=== PATIENT | female | born 1940 ===

== ENCOUNTER 2017-02-28 21:09 | Observation (INO) | payer MEDICAID ==
[2017-02-28 21:10] VITALS: BMI 27.4
[2017-02-28] MEDS ORDERED: Sodium Chloride 0.9% 500 ML IV STA (22:08)
[2017-02-28 22:15] LABS: BASO # 0.1 K/uL (0.0-0.2); BASO % 0.6 % (0.0-2.0); EOS % 0.2 % (0.0-4.0); HEMOGLOBIN 13.3 g/dL (11.0-16.0); LYMPH % 20.3 % (20.0-40.0); MEAN CELL VOLUME 78.8 fL (81.0-99.0); MEAN CORPUSCULAR HEMOGLOBIN 26.3 pg (27.0-31.0); MEAN CORPUSCULAR HGB CONC 33.3 g/dL (33.0-37.0); MEAN PLATELET VOLUME 9.6 fL (7.2-11.7); MONO # 0.5 K/uL (0.0-0.8); MONO % 5.4 % (0.0-10.0); NEUT # 7.4 K/uL (1.8-7.0); NEUT % 73.5 % (50.0-75.0); NRBC % 0.1 % (0.0-2.0); RBC 5.05 Mil/uL (3.80-5.20); RED CELL DISTRIBUTION WIDTH 14.2 % (11.5-14.5); WHITE BLOOD COUNT 10.1 K/uL (4.8-10.8)
[2017-02-28 22:26] LABS: INR 1.1; PROTHROMBIN TIME 12.6 SECONDS (9.7-12.2)
[2017-02-28] MEDS ORDERED: Sodium Chloride 0.9% 1,000 ML ONE (22:27)
--- NOTE | 2017-02-28 22:30 | CT ---
EXAM: CT Head Without Intravenous Contrast EXAM DATE/TIME: 02/28/2017 10:04 PM CLINICAL HISTORY: 76 years old, female; Signs and symptoms; Weakness, extremity; Bilateral; Additional info: Code stroke TECHNIQUE: Axial computed tomography images of the head/brain without intravenous contrast. All CT scans at this facility use one or more dose reduction techniques, viz.: automated exposure control; ma/kV adjustment per patient size (including targeted exams where dose is matched to indication; i.e. head); or iterative reconstruction technique. COMPARISON: There are no prior studies for comparison. FINDINGS: Brain: There is dilatation of sulci gyri and ventricles. There is no midline shift. There is patchy decreased attenuation in periventricular white matter. There are no focal masses. There are no focal hemorrhages. Hopper-white differentiation is visualized. Ventricles: See above. Bones: Cranial vault is intact. Soft tissues: unremarkable Sinuses: There is air fluid level in the right maxillary sinus. There is partial opacification of ethmoid air cells. Ears and mastoids: Middle ears and mastoids are unremarkable. Orbits: Orbital contents are unremarkable. IMPRESSION: Atrophy and small vessel disease, no bleed; sinus disease
[2017-02-28 22:31] LABS: ALB/GLOB RATIO 1.1 (1.0-2.1); ALBUMIN 3.9 g/dL (3.5-5.0); ALT/SGPT 33 U/L (9-52); AST/SGOT 28 U/L (14-36); BLOOD UREA NITROGEN 13 mg/dL (7-17); CALCIUM 8.8 mg/dl (8.6-10.4); GFR AFRICAN-AMERICAN > 60; GFR NON-AFRICAN AMERICAN > 60; HDL CHOLESTEROL 29 mg/dL (30-70)
[2017-02-28 22:42] LABS: LDL CHOLESTEROL 113 mg/dL (0-129)
[2017-02-28 22:43] LABS: B-TYPE NATRIURETIC PEPTIDE 83.7 pg/mL (0-900)
[2017-02-28] MEDS ORDERED: (Novolin R) Insulin Human Regular 100 units/ml vial IV STA (22:49)
--- NOTE | 2017-02-28 22:57 | C.PDOC ---
History Of Present Illness 76 year old female brought in by family presents to ED for weakness and confusion and has a past medical history of diabetes mellitus (takes unknown regimen). 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 Notes patient was too weak to get up and did not remember how she fell. Confirms that she picked up the patient, fed her, and brought her in afterwards. Patient denies pain or injury, but complains of urinary frequency and foul-smelling urine. Denies recent illness. Daughter states patient called her this morning with complaints of diarrhea. PCP: Malina Phillips Time Seen by Provider: 02/28/17 22:02 Chief Complaint (Nursing): Weakness/Neurological Deficit History Per: Patient History/Exam Limitations: None Onset Of Symptoms: Cannot Confirm Onset Usual Baseline: Alert Oriented Past Medical History Reviewed: Historical Data, Nursing Documentation, Vital Signs Vital Signs: Last Vital Signs Temp 101.3 F H 02/28/17 22:28 Pulse 122 H 02/28/17 21:48 Resp 20 02/28/17 21:48 BP 139/83 02/28/17 21:48 Pulse Ox 94 L 02/28/17 23:11 - Medical History PMH: Diabetes (unknown regimen of medication), HTN, Hypercholesterolemia Surgical History: Cholecystectomy - [facility] Procedures BREAST DX PROCEDURE NEC (04/19/13) EXCISE AXILLARY NODE (04/19/13) PERCUTAN NEEDLE BIOPSY OF BREAST (04/03/13) SUBTOTAL MASTECTOMY (04/19/13) UNILAT SIMPLE MASTECTOMY (06/26/13) X-RAY NEC AND NOS (04/19/13) Family History: States: Unknown Family Hx - Social History Hx Alcohol Use: No Hx Substance Use: No Review Of Systems Except As Marked, All Systems Reviewed And Found Negative. Gastrointestinal: Positive for: Diarrhea Genitourinary: Positive for: Frequency, Other ((+) foul smelling urine) Musculoskeletal: Negative for: Neck Pain, Shoulder Pain, Arm Pain, Back Pain, Hand Pain, Leg Pain, Foot Pain Neurological: Positive for: Weakness, Confusion Physical Exam - Physical Exam Appears: Confused (initially mildly confused. Within a half hour, patient was baseline as per family) Skin: Normal Color, Warm, Dry Head: Atraumatic Eye(s): bilateral: Normal Inspection, PERRL, EOMI Cardiovascular: Rhythm Regular Respiratory: Normal Breath Sounds Gastrointestinal/Abdominal: Normal Exam, No Tenderness Extremity: Normal ROM, No Deformity Neurological/Psych: Oriented x3, Normal Speech, Normal Cognition, Normal Cranial Nerves, Normal Motor, Normal Sensation ED Course And Treatment - Laboratory Results Result Diagrams: 02/28/17 22:11 02/28/17 22:11 Lab Interpretation: Normal (ua neg.) ECG: Interpreted By Me ECG Rhythm: Sinus Tachycardia ECG Interpretation: Abnormal Rate From EC O2 Sat by Pulse Oximetry: 94 Pulse Ox Interpretation: Normal - Radiology CXR: Interpreted by Me CXR Interpretation: Yes: No Acute Disease - CT Scan/US Head CT Other Rad Studies (CT/US): Radiology Report Reviewed (no acute findings. Code STroke @ 10:05, d/w Neuro Consult Dr. Barber @ 2214, Neg head CT result per [facility] @ 2238) Reevaluation Time: 23:54 Reassessment Condition: Improved (back to baseline) - Physician Consult Information Outcome Of Conversation: 2330: d/w Dr. Redding- Hospitalist Forensic Manager- covereing pts for Dr. Phillips. OK to admit. 2330: d/w Medicine Fernandez, will eval. Medical Decision Making Medical Decision Makin Initial impression: febrile, consider UTI Initial plan: * CT HEAD * EKG * BNP * Labs * Hemoglobin * Lipid panel * Trop I * PTT/PT * CXR * Novolin R 4 unit IV * NS IV * Acetaminophen 650mg NV * UA * Re-eval 2204 Code stroke called [address] Barber (neurology consult). Scribe Attestation: Documented by Trisha Burgess acting as a scribe for Sam Avila MD. Scribe Attestation: All medical record entries made by the Scribe were at my direction and personally dictated by me. I have reviewed the chart and agree that the record accurately reflects my personal performance of the history, physical exam, medical decision making, and the department course for this patient. I have also personally directed, reviewed, and agree with the discharge instructions and disposition. mild diarrhea, prob non-infectuous, probably viral and ? vasovagal syncope vs fall no injuries, normal head CT Disposition Doctor Will See Patient In The: Hospital Counseled Patient/Family Regarding: Studies Performed, Diagnosis - Disposition Disposition: HOSPITALIZED Disposition Time: 23:55 Condition: GOOD Forms: [employer] (Ugandan) - POA Core Measure Indicators: Code Stroke - Clinical Impression Clinical Impression: Fall, Diarrhea
[2017-02-28] MEDS ORDERED: (Novolin R) Insulin Human Regular 100 units/ml vial ONE (22:58)
--- NOTE | 2017-02-28 23:08 | C.PDOC ---
Time Seen by Provider: 02/28/17 22:02 Chief Complaint (Nursing): Weakness/Neurological Deficit Past Medical History Vital Signs: Last Vital Signs Temp 97.8 F 03/01/17 15:00 Pulse 85 03/01/17 15:00 Resp 20 03/01/17 15:00 BP 132/79 03/01/17 15:00 Pulse Ox 98 03/01/17 15:00 - Medical History PMH: HTN, Hypercholesterolemia Surgical History: Cholecystectomy - [facility] Procedures BREAST DX PROCEDURE NEC (04/19/13) EXCISE AXILLARY NODE (04/19/13) PERCUTAN NEEDLE BIOPSY OF BREAST (04/03/13) SUBTOTAL MASTECTOMY (04/19/13) UNILAT SIMPLE MASTECTOMY (06/26/13) X-RAY NEC AND NOS (04/19/13) Family History: States: Unknown Family Hx - Social History Hx Alcohol Use: No Hx Substance Use: No ED Course And Treatment - Laboratory Results Result Diagrams: 03/01/17 07:21 03/01/17 07:21 O2 Sat by Pulse Oximetry: 94 Disposition - Disposition Disposition: HOSPITALIZED Condition: GOOD - Clinical Impression Clinical Impression: Fall, Diarrhea
[2017-02-28] MEDS ORDERED: cefTRIAXone IV 1 gm in Dextros 50 ML IV STA (23:09)
[2017-02-28 23:22] LABS: URINE BACTERIA RARE (<OCC); URINE BILIRUBIN NEGATIVE (NEGATIVE); URINE BLOOD NEGATIVE (NEGATIVE); URINE CLARITY Clear (Clear); URINE COLOR Straw (YELLOW); URINE GLUCOSE (UA) 3+ mg/dL (Normal); URINE LEUKOCYTE ESTERASE NEG Leu/uL (Negative); URINE NITRATE NEGATIVE (NEGATIVE); URINE PROTEIN NEGATIVE (NEGATIVE); URINE UROBILINOGEN NORMAL mg/dL (0.2-1.0)
--- NOTE | 2017-02-28 23:29 | CP.PCM.HP ---
<Neel Redding P - Last Filed: 03/01/17 08:17> Meds Allergies/Adverse Reactions: Allergies Allergy/AdvReac Type Severity Reaction Status Date / Time No Known Allergies Allergy Verified 01/19/16 12:54 Results - Vital Signs Recent Vital Signs: Last Vital Signs Temp 98.2 F 03/01/17 07:00 Pulse 84 03/01/17 07:00 Resp 20 03/01/17 07:00 BP 112/68 03/01/17 07:00 Pulse Ox 98 03/01/17 07:00 - Labs Result Diagrams: 03/01/17 07:21 03/01/17 07:21 Labs: Laboratory Results - last 24 hr 02/28/17 02/28/17 02/28/17 22:11 22:11 22:11 WBC 10.1 RBC 5.05 Hgb 13.3 Hct 39.8 MCV 78.8 L D MCH 26.3 L MCHC 33.3 RDW 14.2 Plt Count 234 MPV 9.6 Neut % (Auto) 73.5 Lymph % (Auto) 20.3 [place] % (Auto) 5.4 Eos % (Auto) 0.2 Baso % (Auto) 0.6 Neut # 7.4 H Lymph # 2.0 [place] # 0.5 Eos # 0.0 Baso # 0.1 PT INR APTT Sodium 128 L Potassium 3.8 Chloride 93 L Carbon Dioxide 23 Anion Gap 16 BUN 13 Creatinine 0.7 Est GFR ( Amer) > 60 Est GFR (Non-Af Amer) > 60 POC Glucose (mg/dL) Random Glucose 301 H Hemoglobin A1c 9.8 H Calcium 8.8 Phosphorus Magnesium Total Bilirubin 0.8 AST 28 ALT 33 Alkaline Phosphatase 87 Troponin I < 0.0120 NT-Pro-B Natriuret Pep 83.7 Total Protein 7.3 Albumin 3.9 Globulin 3.4 Albumin/Globulin Ratio 1.1 Triglycerides 142 D Cholesterol 154 LDL Cholesterol Direct 113 HDL Cholesterol 29 L Urine Color Urine Clarity Urine pH Ur Specific [place] Urine Protein Urine Glucose (UA) Urine Ketones Urine Blood Urine Nitrate Urine Bilirubin Urine Urobilinogen Ur Leukocyte Esterase Urine RBC (Auto) Urine Bacteria Influenza Typ A,B (EIA) 02/28/17 02/28/17 02/28/17 22:14 23:17 23:32 WBC RBC Hgb Hct MCV MCH MCHC RDW Plt Count MPV Neut % (Auto) Lymph % (Auto) [place] % (Auto) Eos % (Auto) Baso % (Auto) Neut # Lymph # [place] # Eos # Baso # PT 12.6 H INR 1.1 APTT 29 Sodium Potassium Chloride Carbon Dioxide Anion Gap BUN Creatinine Est GFR ( Amer) Est GFR (Non-Af Amer) POC Glucose (mg/dL) Random Glucose Hemoglobin A1c Calcium Phosphorus Magnesium Total Bilirubin AST ALT Alkaline Phosphatase Troponin I NT-Pro-B Natriuret Pep Total Protein Albumin Globulin Albumin/Globulin Ratio Triglycerides Cholesterol LDL Cholesterol Direct HDL Cholesterol Urine Color Straw Urine Clarity Clear Urine pH 5.0 Ur Specific [place] 1.012 Urine Protein Negative Urine Glucose (UA) 3+ H Urine Ketones 1+ H Urine Blood Negative Urine Nitrate Negative Urine Bilirubin Negative Urine Urobilinogen Normal Ur Leukocyte Esterase Neg Urine RBC (Auto) < 1 Urine Bacteria Rare Influenza Typ A,B (EIA) Negative for flu a/b 03/01/17 03/01/17 03/01/17 06:30 07:21 07:21 WBC 6.7 RBC 4.33 Hgb 11.5 Hct 34.8 MCV 80.3 L MCH 26.6 L MCHC 33.1 RDW 14.5 Plt Count 180 MPV 9.9 Neut % (Auto) 60.3 Lymph % (Auto) 29.2 [place] % (Auto) 9.0 Eos % (Auto) 1.3 Baso % (Auto) 0.2 Neut # 4.0 Lymph # 1.9 [place] # 0.6 Eos # 0.1 Baso # 0.0 PT INR APTT Sodium 132 Potassium 3.3 L Chloride 102 Carbon Dioxide 25 Anion Gap 9 L BUN 9 Creatinine 0.6 L Est GFR ( Amer) > 60 Est GFR (Non-Af Amer) > 60 POC Glucose (mg/dL) 187 H Random Glucose 172 H Hemoglobin A1c Calcium 8.0 L Phosphorus 3.5 Magnesium 1.4 L Total Bilirubin 0.4 AST 23 ALT 30 Alkaline Phosphatase 68 Troponin I NT-Pro-B Natriuret Pep Total Protein 5.6 L Albumin 2.9 L D Globulin 2.8 Albumin/Globulin Ratio 1.0 Triglycerides Cholesterol LDL Cholesterol Direct HDL Cholesterol Urine Color Urine Clarity Urine pH Ur Specific [place] Urine Protein Urine Glucose (UA) Urine Ketones Urine Blood Urine Nitrate Urine Bilirubin Urine Urobilinogen Ur Leukocyte Esterase Urine RBC (Auto) Urine Bacteria Influenza Typ A,B (EIA) Attending/Attestation - Attestation I have personally seen and examined this patient.: Yes I have fully participated in the care of the patient.: Yes I have reviewed all pertinent clinical information: Yes Notes (Text): Assessment * Fever * Syncope, no injuries, no neurologic symptoms, stool w/u as patient had few episode loose bm * IDDM * tobacco chewing Plan * Observe for fever, no clear source * Procacitonin, bc pending * hold on hctz, metformin while in hospital * Echo * Gi/dvt prophylaxis * stool w/u * See orders for detail. 03/01/17 08:17 <Nathalie Nevarez - Last Filed: 03/01/17 09:23> History of Present Illness - History of Present Illness History of Present Illness: Medicine Note for Hospitalist Service CC: Syncope HPI:[id number] Female with PMHx of HTN, DM, Breast Cancer- DCIS s/p left mastectomy presents to the ED after a syncopal episode. History retrieved from the patient, family friend, and daughter. Patient had a normal breakfast and lunch. After lunch the homemaker left around 1 pm. She reported have 2-4 bowel movements of diarrhea, nonbloody, non-bilious. The patient's daughter called her around 3pm and there was no response. When the daughter arrived home at 5: 30 she found the patient on the floor, covered in her own urine. Patient reports she was walking and her next memory of the event was her being on the floor. She reports she felt dizzy at that movement and just passed out and landed on the floor. She is unaware of how long she was down. She could not recall if there any trauma to her head, or other body parts. Due to the length of time she was on the floor, she urinated on herself, due to the inability to hold her urine. Her daughter checked her sugar when she found her at 5:30 pm - it read 129. This is the first time this has happened to her. Denied fever, chills, headache, cough, chest pain, SOB, abdominal pain, n/v/d/c, or urinary symptoms. PMHx: HTN, DM, Breast Cancer- DCIS s/p left mastectomy PSHx: Vaginal sling for vaginal prolapse, hysterectomy, mastectomy Meds: As per APR, reviewed and confirmed All: NKDA SHx: Admits to chewing tobacco, denied ETOH or illicit drug use FHx: Unremarkable PMD: Phillips Present on Admission - Present on Admission Any Indicators Present on Admission: No Past Patient History - Infectious Disease Hx of Infectious Diseases: None - Past Medical History & Family History Past Medical History?: Yes - Past Social History Smoking Status: Never Smoked - CARDIAC Hx Hypercholesterolemia: Yes Hx Hypertension: Yes - HEENT Hx HEENT Problems: Yes Hx Cataracts: Yes Hx Glaucoma: Yes - ENDOCRINE/METABOLIC Hx Endocrine Disorders: Yes Hx Diabetes Mellitus Type 2: Yes - HEMATOLOGICAL/ONCOLOGICAL Hx Blood Disorders: Yes Hx Cancer: Yes - MUSCULOSKELETAL/RHEUMATOLOGICAL Hx Falls: No - GENITOURINARY/GYNECOLOGICAL Hx Genitourinary Disorders: Yes Hx Reproductive Disorders: Yes (HOT "FLASHES") - PSYCHIATRIC Hx Substance Use: No - SURGICAL HISTORY Hx Cholecystectomy: Yes - ANESTHESIA Hx Anesthesia: Yes Hx Anesthesia Reactions: No Hx Malignant Hyperthermia: No Results - Vital Signs Recent Vital Signs: Last Vital Signs Temp 101.3 F H 02/28/17 22:28 Pulse 122 H 02/28/17 21:48 Resp 20 02/28/17 21:48 BP 139/83 02/28/17 21:48 Pulse Ox 94 L 02/28/17 23:11 - Labs Result Diagrams: 03/01/17 07:21 03/01/17 07:21 Labs: Laboratory Results - last 24 hr 02/28/17 02/28/17 02/28/17 22:11 22:11 22:11 WBC 10.1 RBC 5.05 Hgb 13.3 Hct 39.8 MCV 78.8 L D MCH 26.3 L MCHC 33.3 RDW 14.2 Plt Count 234 MPV 9.6 Neut % (Auto) 73.5 Lymph % (Auto) 20.3 [place] % (Auto) 5.4 Eos % (Auto) 0.2 Baso % (Auto) 0.6 Neut # 7.4 H Lymph # 2.0 [place] # 0.5 Eos # 0.0 Baso # 0.1 PT INR APTT Sodium 128 L Potassium 3.8 Chloride 93 L Carbon Dioxide 23 Anion Gap 16 BUN 13 Creatinine 0.7 Est GFR ( Amer) > 60 Est GFR (Non-Af Amer) > 60 Random Glucose 301 H Hemoglobin A1c 9.8 H Calcium 8.8 Total Bilirubin 0.8 AST 28 ALT 33 Alkaline Phosphatase 87 Troponin I < 0.0120 NT-Pro-B Natriuret Pep 83.7 Total Protein 7.3 Albumin 3.9 Globulin 3.4 Albumin/Globulin Ratio 1.1 Triglycerides 142 D Cholesterol 154 LDL Cholesterol Direct 113 HDL Cholesterol 29 L Urine Color Urine Clarity Urine pH Ur Specific [place] Urine Protein Urine Glucose (UA) Urine Ketones Urine Blood Urine Nitrate Urine Bilirubin Urine Urobilinogen Ur Leukocyte Esterase Urine RBC (Auto) Urine Bacteria 02/28/17 02/28/17 22:14 23:17 WBC RBC Hgb Hct MCV MCH MCHC RDW Plt Count MPV Neut % (Auto) Lymph % (Auto) [place] % (Auto) Eos % (Auto) Baso % (Auto) Neut # Lymph # [place] # Eos # Baso # PT 12.6 H INR 1.1 APTT 29 Sodium Potassium Chloride Carbon Dioxide Anion Gap BUN Creatinine Est GFR ( Amer) Est GFR (Non-Af Amer) Random Glucose Hemoglobin A1c Calcium Total Bilirubin AST ALT Alkaline Phosphatase Troponin I NT-Pro-B Natriuret Pep Total Protein Albumin Globulin Albumin/Globulin Ratio Triglycerides Cholesterol LDL Cholesterol Direct HDL Cholesterol Urine Color Straw Urine Clarity Clear Urine pH 5.0 Ur Specific [place] 1.012 Urine Protein Negative Urine Glucose (UA) 3+ H Urine Ketones 1+ H Urine Blood Negative Urine Nitrate Negative Urine Bilirubin Negative Urine Urobilinogen Normal Ur Leukocyte Esterase Neg Urine RBC (Auto) < 1 Urine Bacteria Rare Assessment & Plan - Assessment and Plan (Free Text) Assessment: 76 Female with PMHx of HTN, DM, Breast Cancer- DCIS s/p left mastectomy presents to the ED after a syncopal episode. Plan: Syncope Head CT: Atrophy and small vessel disease, no bleed; sinus disease CXR: No focal infiltrate or effusion F/U ECHO, Carotid Dopplers, TSH, T4, B12, folate, Vit D Diarrhea Febrile on admission Negative Flu F/U stool studies, CDiff, blood culture NS @ 100cc/hr Hx DM Accuchecks Resumed home medications: Lantus 18units SC daily, Januvia 100mg Po daily ( held Amaryl) HGA1C: 9.8 Hx HTN Resumed Lisinopril 10mg PO daily (held HCTZ due to Hyponatremia) Hx HLD Crestor 5mg PO QHS Hx Breast Ca - DCIS s/p Left Mastectomy Prophylactic Measures GI PPX: 40mg PO daily DVT PPX: SCDs, Hep Q12 PT Aubrieal SEA Redding, Nathalie Nevarez DO, PGY-1
[2017-02-28] MEDS ORDERED: Sodium Chloride 0.9% 1,000 ML IV SCH (23:45)
[2017-03-01 07:39] LABS: BASO % 0.2 % (0.0-2.0); EOS # 0.1 K/uL (0.0-0.7); EOS % 1.3 % (0.0-4.0); HEMOGLOBIN 11.5 g/dL (11.0-16.0); LYMPH # 1.9 K/uL (1.0-4.3); LYMPH % 29.2 % (20.0-40.0); MEAN CELL VOLUME 80.3 fL (81.0-99.0); MEAN CORPUSCULAR HEMOGLOBIN 26.6 pg (27.0-31.0); MEAN CORPUSCULAR HGB CONC 33.1 g/dL (33.0-37.0); MEAN PLATELET VOLUME 9.9 fL (7.2-11.7); MONO # 0.6 K/uL (0.0-0.8); NEUT % 60.3 % (50.0-75.0); RBC 4.33 Mil/uL (3.80-5.20); RED CELL DISTRIBUTION WIDTH 14.5 % (11.5-14.5); WHITE BLOOD COUNT 6.7 K/uL (4.8-10.8)
[2017-03-01 07:59] LABS: ALBUMIN 2.9 g/dL (3.5-5.0); ALT/SGPT 30 U/L (9-52); AST/SGOT 23 U/L (14-36); BLOOD UREA NITROGEN 9 mg/dL (7-17); GFR AFRICAN-AMERICAN > 60; GFR NON-AFRICAN AMERICAN > 60; MAGNESIUM 1.4 mg/dL (1.6-2.3)
--- NOTE | 2017-03-01 08:39 | RAD ---
Chest x-ray single frontal view History: MS. Admission film. Comparison: 04/13/2013 Findings: No focal infiltrate or effusion. Heart size within normal limits. Calcification at aortic knob. Impression: No focal infiltrate or effusion.
[2017-03-01] MEDS: (Novolin R) Insulin Human Regular 100 units/ml vial SC SCH ×3 (08:45→17:55)
[2017-03-01] MEDS: Insulin Detemir 100 units/ml Vial (Levemir) SC SCH (09:26)
[2017-03-01] MEDS: Pantoprazole 40 mg EC Tab PO SCH (09:26)
[2017-03-01] MEDS: Magnesium Sulfate 1 gm in D5W 1 GM/100 ML BAG IVPB SCH ×2 (09:27→10:41)
[2017-03-01] MEDS ORDERED: PRAVASTATIN SODIUM PO SCH (10:00)
[2017-03-01] MEDS ORDERED: Potassium Chloride 20 mEq ER Tab PO ONE (10:00)
[2017-03-01 12:57] LABS: FOLATE 11.3 ng/mL
--- NOTE | 2017-03-01 13:38 | VASCLAB ---
PROCEDURE: HISTORY: syncope COMPARISON: None available. TECHNIQUE: Grayscale and duplex Doppler evaluation of the cervical carotid and vertebral arteries were performed. The common carotid, carotid bifurcations and cervical Internal Carotid Artery (ICA) and proximal External Carotid Artery (ECA) were evaluated. The vertebral arteries were evaluated for gross patency and flow direction. Report prepared by Bib Flores, BS, RVT FINDINGS: RIGHT CAROTID ARTERIES: 1. Common Carotid Artery: No significant focal plaque formation of the right common carotid artery. Maximum Peak Systolic velocity: 99 cm/sec: End-diastolic velocity 15 cm/sec. 2. Carotid Bifurcation: plaque formation. Maximum Peak Systolic velocity: 86 cm/sec: End-diastolic velocity 18 cm/sec. 3. Internal Carotid Artery: Plaque description: 3.1. Proximal Segment: Peak systolic velocity 69 cm/sec: End-diastolic velocity 18 cm/sec - % stenosis 0-15% 3.2. Middle Segment: Peak systolic velocity 81 cm/sec: End-diastolic velocity 21 cm/sec - % stenosis 0-15% 3.3. Distal Segment: Peak systolic velocity 69 cm/sec: End-diastolic velocity 21 cm/sec - % stenosis 0-15% 4. External Carotid Artery: No significant focal plaque formation. Peak systolic velocity 82 cm/sec 5. ICA/CCA Ratio: 0.9 LEFT CAROTID ARTERIES: 1. Common Carotid Artery: No significant focal plaque formation of the left common carotid artery. Maximum Peak Systolic velocity: 79 cm/sec: End-diastolic velocity 19 cm/sec. 2. Carotid Bifurcation: plaque formation. Maximum Peak Systolic velocity: 61 cm/sec: End-diastolic velocity 15 cm/sec. 3. Internal Carotid Artery: Plaque description: 3.1. Proximal Segment: Peak systolic velocity 70 cm/sec: End-diastolic velocity 24 cm/sec - % stenosis 0-15% 3.2. Middle Segment: Peak systolic velocity 101 cm/sec: End-diastolic velocity 37 cm/sec - % stenosis 0-15% 3.3. Distal Segment: Peak systolic velocity 85 cm/sec: End-diastolic velocity 85 cm/sec - % stenosis 0-15% 4. External Carotid Artery: No significant focal plaque formation. Peak systolic velocity 82 cm/sec 5. ICA/CCA Ratio: 1.3 VERTEBRAL ARTERIES: 1. Right Vertebral Artery: The right vertebral artery flow direction is antegrade. 2. Left Vertebral Artery: The left vertebral artery flow direction is antegrade. OTHER FINDINGS: 1. Right Brachial Blood pressure: 126 mmHg. 2. Left Brachial Blood pressure: 120 mmHg. IMPRESSION: RIGHT: Duplex scan does not suggest hemodynamically significant stenosis of the right extracranial carotid arteries. LEFT: Duplex scan does not suggest hemodynamically significant stenosis of the left extracranial carotid arteries.
[2017-03-01] MEDS ORDERED: Influenza Vaccine 60 mcg/0.5 mL SYR (4YR UP) IM ONE (14:00)
[2017-03-01] MEDS ORDERED: Pneumococcal 23-Valent Vaccine IM ONE (14:00)
--- NOTE | 2017-03-01 14:06 | CP.PCM.PN ---
<AguilarRenaten - Last Filed: 03/01/17 20:07> Subjective - Date & Time of Evaluation Date of Evaluation: 03/01/17 Time of Evaluation: 10:04 - Subjective Subjective: Patient seen and examined at bedside. Per nursing no acute events occurred overnight. The patient reports feeling fine today. The patient is tolerating her diet with no complaints. The patient denies any chest pain, shortness of breath, lightheadedness, dizzines, syncopal episodes, changes in vision, fevers , chills, nausea, vomiting, or any other complaints. Objective - Vital Signs/Intake and Output Vital Signs (last 24 hours): Temp Pulse Resp BP Pulse Ox 98.2 F 84 20 112/68 98 03/01/17 07:00 03/01/17 07:00 03/01/17 07:00 03/01/17 07:00 03/01/17 08:00 - Medications Medications: Current Medications Aspirin (Ecotrin) 81 mg PO DAILY [facility] Last Admin: 03/01/17 09:25 Dose: 81 mg Heparin Sodium (Porcine) (Heparin) 5,000 units SC Q12 [facility] Last Admin: 03/01/17 09:26 Dose: 5,000 units Sodium Chloride (Sodium Chloride 0.9%) 1,000 mls @ 100 mls/hr IV .Q10H [facility] Last Admin: 03/01/17 00:00 Dose: 100 mls/hr Insulin Detemir (Levemir) 18 unit SC QAM [facility] Last Admin: 03/01/17 09:26 Dose: 18 unit Insulin Human Regular (Novolin R) 0 unit SC ACHS [facility] PRN Reason: Protocol Last Admin: 03/01/17 12:44 Dose: 4 unit Lisinopril (Zestril) 10 mg PO DAILY [facility] Last Admin: 03/01/17 09:26 Dose: 10 mg Pantoprazole Sodium (Protonix Ec Tab) 40 mg PO DAILY [facility] Last Admin: 03/01/17 09:26 Dose: 40 mg Rosuvastatin Calcium (Crestor) 5 mg PO HS [facility] Sitagliptin Phosphate (Januvia) 100 mg PO DAILY [facility] Last Admin: 03/01/17 09:26 Dose: 100 mg - Labs Labs: 03/01/17 07:21 03/01/17 07:21 PT 12.6 SECONDS (9.7-12.2) H 02/28/17 22:14 INR 1.1 02/28/17 22:14 APTT 29 SECONDS (21-34) 02/28/17 22:14 - Head Exam Head Exam: ATRAUMATIC, NORMAL INSPECTION, NORMOCEPHALIC - Eye Exam Eye Exam: EOMI, Normal appearance, PERRL. absent: Periorbital tenderness Pupil Exam: NORMAL ACCOMODATION, PERRL. absent: Irregular, Unequal - ENT Exam ENT Exam: Mucous Membranes Moist, Normal Exam, Normal Oropharynx - Neck Exam Neck Exam: Normal Inspection. absent: Lymphadenopathy, Thyromegaly - Respiratory Exam Respiratory Exam: Clear to Ausculation Bilateral, NORMAL BREATHING PATTERN. absent: Chest Wall Tenderness, Prolonged Expiratory Phase, Respiratory Distress - Cardiovascular Exam Cardiovascular Exam: REGULAR RHYTHM, RRR, +S1, +S2. absent: Gallop, Rubs - GI/Abdominal Exam GI & Abdominal Exam: Soft, Normal Bowel Sounds. absent: Rigid, Hyperactive Bowel Sounds - Extremities Exam Extremities Exam: Full ROM, Normal Inspection. absent: Joint Swelling, Pedal Edema, Tenderness - Back Exam Back Exam: NORMAL INSPECTION. absent: CVA tenderness (L), CVA tenderness (R), paraspinal tenderness - Neurological Exam Neurological Exam: Alert, Awake, CN II-XII Intact, Normal Gait, Oriented x3 - Psychiatric Exam Psychiatric exam: Normal Affect, Normal Mood - Skin Skin Exam: Dry, Intact, Normal Color, Warm Assessment and Plan - Assessment and Plan (Free Text) Assessment: 76 Female with PMHx of HTN, DM, Breast Cancer- DCIS s/p left mastectomy presents to the ED after a syncopal episode. Plan: Syncope Head CT: Atrophy and small vessel disease, no bleed; sinus disease CXR: No focal infiltrate or effusion TSH: 2.32 T4: .95 Folate:11.2 Vit B12: 221 Caroitd Doppler: Right (negative for stenosis) Left (negative for stenosis) Echo taken. Not officially read. Will f/u with results. Diarrhea Febrile on admission Negative Flu F/U stool studies, CDiff, blood culture , Urine cultures Continue NS @ 100cc/hr Hx DM Accuchecks Resumed home medications: Lantus 18units SC daily, Januvia 100mg Po daily ( held Amaryl) HGA1C: 9.8 Patient states she checks her blood sugar one in the morning before her meal and in the evening before dinner. Discussed with patient the importance of adhering to dosing schedule. Hx HTN Continue Lisinopril 10mg PO daily (held HCTZ due to Hyponatremia) Hx HLD Continue Crestor 5mg PO QHS Hx Breast Ca - DCIS s/p Left Mastectomy No Intervention indicated at this time. Prophylactic Measures GI PPX: 40mg PO daily DVT PPX: SCDs, Hep Q12 PT Eval <Jarrod Salgado - Last Filed: 03/02/17 20:04> Objective - Vital Signs/Intake and Output Vital Signs (last 24 hours): Temp Pulse Resp BP Pulse Ox 98.7 F 79 18 116/71 97 03/02/17 08:36 03/02/17 11:25 03/02/17 08:36 03/02/17 08:36 03/02/17 11:25 Intake and Output: 03/02/17 03/03/17 18:59 06:59 Intake Total 650 Balance 650 - Labs Labs: 03/02/17 07:18 03/02/17 07:18 PT 12.6 SECONDS (9.7-12.2) H 02/28/17 22:14 INR 1.1 02/28/17 22:14 APTT 29 SECONDS (21-34) 02/28/17 22:14 Attending/Attestation - Attestation I have personally seen and examined this patient.: No I have fully participated in the care of the patient.: Yes I have reviewed all pertinent clinical information, including history, physical exam and plan: Yes Notes (Text): 03/02/17 20:03 Please note that this patient was not seen by me on 03/01/17 as patient was not on Hospitalist list. Jarrod Salgado D.O.
--- NOTE | 2017-03-01 22:35 | CARD ---
APPROVED REPORT EXAM: Two-dimensional and M-mode echocardiogram with Doppler and color Doppler. INDICATION Syncope RISK FACTORS Hypertension Diabetes 2D DIMENSIONS IVSd1.3 (0.7-1.1cm)LVDd3.9 (3.9-5.9cm) PWd1.4 (0.7-1.1cm)LVDs2.4 (2.5-4.0cm) FS (%) 38.0 %LVEF (%)68.8 (>50%) M-Mode DIMENSIONS Left Atrium (MM)3.99 (2.5-4.0cm)IVSd1.04 (0.7-1.1cm) Aortic Root3.30 (2.2-3.7cm)LVDd5.26 (4.0-5.6cm) Aortic Cusp Exc.2.01 (1.5-2.0cm)PWd1.68 (0.7-1.1cm) FS (%) 31 %LVDs3.64 (2.0-3.8cm) LVEF (%)58 (>50%) Mitral Valve MV E Phnkwmfl83.4cm/sMV A Nbixaaug607.4cm/sE/A ratio0.8 TDI E/Lateral E'0.0E/Medial E'0.0 LEFT VENTRICLE The left ventricle is normal size. The left ventricular function is normal. The left ventricular ejection fraction is within the normal range. There is normal LV segmental wall motion. Transmitral Doppler flow pattern is abnormal. RIGHT VENTRICLE The right ventricle is normal size. ATRIA The left atrium is borderline dilated. MITRAL VALVE Mitral regurgitation is trace. TRICUSPID VALVE There is mild tricuspid regurgitation. <Conclusion> Normal LV systolic function. Borderline dilated LA. Diastolic dysfunction. Mild TR. Trcae MR.
--- NOTE | 2017-03-01 23:05 | CARD ---
APPROVED REPORT EKG Measurement Heart [id number] <Conclusion> Sinus tachycardia Abnormal ECG
[2017-03-02 07:30] LABS: BASO % 0.4 % (0.0-2.0); EOS # 0.3 K/uL (0.0-0.7); LYMPH # 2.3 K/uL (1.0-4.3); LYMPH % 36.3 % (20.0-40.0); MEAN CELL VOLUME 80.7 fL (81.0-99.0); MEAN CORPUSCULAR HEMOGLOBIN 26.6 pg (27.0-31.0); MEAN CORPUSCULAR HGB CONC 32.9 g/dL (33.0-37.0); MEAN PLATELET VOLUME 9.9 fL (7.2-11.7); MONO # 0.6 K/uL (0.0-0.8); MONO % 10.2 % (0.0-10.0); NEUT # 3.1 K/uL (1.8-7.0); NEUT % 49.1 % (50.0-75.0); RBC 4.12 Mil/uL (3.80-5.20); RED CELL DISTRIBUTION WIDTH 14.5 % (11.5-14.5); WHITE BLOOD COUNT 6.3 K/uL (4.8-10.8)
[2017-03-02 07:48] LABS: ALB/GLOB RATIO 1.1 (1.0-2.1); ALBUMIN 2.8 g/dL (3.5-5.0); ALT/SGPT 35 U/L (9-52); AST/SGOT 24 U/L (14-36); BLOOD UREA NITROGEN 10 mg/dL (7-17); CALCIUM 7.8 mg/dl (8.6-10.4); GFR AFRICAN-AMERICAN > 60; GFR NON-AFRICAN AMERICAN > 60; MAGNESIUM 1.6 mg/dL (1.6-2.3)
[2017-03-02 08:38] VITALS: BP 116/71; RESP 18; TEMP 98.7
[2017-03-02] MEDS: (Novolin R) Insulin Human Regular 100 units/ml vial SC SCH ×2 (08:49→13:02)
--- NOTE | 2017-03-02 09:13 | CP.PCM.PN ---
Subjective - Date & Time of Evaluation Date of Evaluation: 03/02/17 Time of Evaluation: 09:00 - Subjective Subjective: Hospitalist Progress Note 76 year old female (PMHx of DM 2 on Insulin, HTN, HLD, Breast CA S/P Left Mastectomy) who presented to [facility] ER on 02/28/17 after syncopal episode. Patient states that after her in home caregiver left 1 PM on 02/28/17 she had 2 to 4 SOFT (and NOT diarrhea) bowel movements after which she became dizzy (NO CP, NO SOB, NO Palpitations) and passed out. She is not aware of the exact time that she was out. However, Daughter (as per records) indicated that she called patient at 3 PM and no answer and when she came to check in on patient at 5:30, she found patient laying on the floor. Chest X Ray, CT Head, Carotid U/S, Echocardiogram are all unremarkable. Awaiting evaluation for PT Crisitina. Patient states that she does not want to go to [facility] if recommended by PT but will accept Home PT. She has a homemaker who comes Tuesday through Tuesday for 5 hours and her Nephew lives in the same building who looks in on her. Currently upon FULL ROS: NO more episodes of dizziness Bowel Movements are normal and nonbloody/nonblack NO chest pain NO palpitations NO SOB/cough/wheezing NO abdominal pain NO n/v/c NO burning/pain with urination NO headaches NO new changes in vision NO new changes in hearing NO paresthesias Exam: General: AAOX3, NAD HEENT: NCA, EOMI, PERRLA, NO thyromegaly, NO cervical/supraclavicular/ submandibular lymphadenopathy, NO pharyngeal erythema/exudate Cardio: NS1 and NS2, NO M/R/G Resp: CTA B/L , NO R/R/W GI: BSx4, soft, NT, ND, NO HSM, NO guarding/rebound tenderness Ext: NO edema, Pulses are strong and equal, Capillary Refill is 2 seconds Neuro: CN II through XII are grossly intact, 5/5 strength with flexion/ extension against resistance in bilateral UE and LE, 2/4 DTR bilateral UE and LE , Rhomberg and [place] are normal Spoke with PT Kiley and patient would benefit from [facility] but patient has refused but has agreed to Home PT. This has been set up with [facility] and tax representative Kath is made aware and Rx provided to her for Home PT and Home Visiting Nurse for Diabetic counseling considering the elevated HgBA1C. Explained to patient and her niece Jesi that someone from [facility] will be contacting patient in the next 24 to 48 hours. I have gone over all of the home medications as per the Medication Record and confirmed with Patient and her Niece Jesi [phone] that she has enough of all her medications. Considering the above, the patient is stable for discharge Assessment and Plan: 1). Syncope Please see details in HPI Likely secondary to Vasovagal Episode Chest X Ray, CT Head, Carotid U/S, Echocardiogram (borderline dilated LA, diastolic dysfunction, Mild TR and Trace MR) are all unremarkable. 2). Questionable Diarrhea Patient stated that she never had diarrhea, just soft bowel movement initially ( see HPI). 3). DM 2 On Insulin Confirmed with patient (Niece Jesi [phone] was present at the time of going over discharge instructions with patient) that patient has enough of her Lantus, Januvia, Amaryl, Metformin 4). HTN Asked patient to HOLD off on taking Lisinopril/HCTZ component as the HCTZ component is likely causing the Hyponatremia. New Rx for Lisinopril provided to patient 5). HLD She will continue her Pravastatin which was confirmed that she had enough of. 6). Hx Breast CA S/P Left Mastectomy She [place] [facility] [place] 7). Hypokalemia Resolved 8). Hyponatremia Resolved The following instructions were thoroughly gone over with the patient and a copy will be provided to her upon discharge by Nurse: 1). Follow up with your Primary Physician Dr. Phillips in the next 7 days. 2). Follow up as scheduled with your Breast Cancer Physician as planned on 03/03/17 at [facility] 3). You stated that you had enough of your home medications. Please continue them as directed by Dr. Phillips: Januvia Metformin Glimepiride Lantus [place]ine Aspirin 4). Please STOP taking Lisinopril/Hydrochlorothiazide as this is causing your Sodium level to drop. Please take the following new medication and have the prescription filled at your pharmacy: Lisinopril 10 mg, 1 tablet by mouth 1x/day with breakfast, Disp #30, NO refills 5). Please take care and be well. Jarrod Salgado D.O. Objective - Vital Signs/Intake and Output Vital Signs (last 24 hours): Temp Pulse Resp BP Pulse Ox 98.7 F 72 18 116/71 96 03/02/17 08:36 03/02/17 08:36 03/02/17 08:36 03/02/17 08:36 03/02/17 08:36 Intake and Output: 03/02/17 03/02/17 06:59 18:59 Intake Total 800 Balance 800 - Medications Medications: Current Medications Aspirin (Ecotrin) 81 mg PO DAILY [facility] Last Admin: 03/01/17 09:25 Dose: 81 mg Heparin Sodium (Porcine) (Heparin) 5,000 units SC Q12 [facility] Last Admin: 03/01/17 21:24 Dose: 5,000 units Sodium Chloride (Sodium Chloride 0.9%) 1,000 mls @ 100 mls/hr IV .Q10H [facility] Last Admin: 03/01/17 00:00 Dose: 100 mls/hr Insulin Detemir (Levemir) 18 unit SC QAM [facility] Last Admin: 03/01/17 09:26 Dose: 18 unit Insulin Human Regular (Novolin R) 0 unit SC ACHS [facility] PRN Reason: Protocol Last Admin: 03/02/17 08:49 Dose: 1 unit Lisinopril (Zestril) 10 mg PO DAILY [facility] Last Admin: 03/01/17 09:26 Dose: 10 mg Pantoprazole Sodium (Protonix Ec Tab) 40 mg PO DAILY [facility] Last Admin: 03/01/17 09:26 Dose: 40 mg Pneumococcal Polyvalent Vaccine (Pneumovax 23 Vaccine) 0.5 ml IM .ONCE ONE Stop: 03/02/17 14:01 Rosuvastatin Calcium (Crestor) 5 mg PO HS [facility] Last Admin: 03/01/17 21:24 Dose: 5 mg Sitagliptin Phosphate (Januvia) 100 mg PO DAILY [facility] Last Admin: 03/01/17 09:26 Dose: 100 mg - Labs Labs: 03/02/17 07:18 03/02/17 07:18 PT 12.6 SECONDS (9.7-12.2) H 01/22/18 22:14 INR 1.1 02/28/17 22:14 APTT 29 SECONDS (21-34) 02/28/17 22:14
--- NOTE | 2017-03-02 09:46 | CP.PCM.DIS ---
Provider - Provider Date of Admission: 02/28/17 23:45 Attending physician: Neel Redding MD Primary care physician: PMD: Dr. Phillips Time Spent in preparation of Discharge (in minutes): 45 Hospital Course - Lab Results Lab Results: Micro Results 02/28/17 00:15 Blood Blood Culture - Preliminary NO GROWTH AFTER 24 HOURS 02/28/17 23:13 Urine,Catheterized Urine Culture - Final No Growth (<1,000 CFU/ML) Most Recent Lab Values WBC 6.3 K/uL (4.8-10.8) 03/02/17 07:18 RBC 4.12 Mil/uL (3.80-5.20) 03/02/17 07:18 Hgb 11.0 g/dL (11.0-16.0) 03/02/17 07:18 Hct 33.3 % (34.0-47.0) L 03/02/17 07:18 MCV 80.7 fL (81.0-99.0) L 03/02/17 07:18 MCH 26.6 pg (27.0-31.0) L 03/02/17 07:18 MCHC 32.9 g/dL (33.0-37.0) L 03/02/17 07:18 RDW 14.5 % (11.5-14.5) 03/02/17 07:18 Plt Count 171 K/uL (130-400) 03/02/17 07:18 MPV 9.9 fL (7.2-11.7) 03/02/17 07:18 Neut % (Auto) 49.1 % (50.0-75.0) L 03/02/17 07:18 Lymph % (Auto) 36.3 % (20.0-40.0) 03/02/17 07:18 [place] % (Auto) 10.2 % (0.0-10.0) H 03/02/17 07:18 Eos % (Auto) 4.0 % (0.0-4.0) 03/02/17 07:18 Baso % (Auto) 0.4 % (0.0-2.0) 03/02/17 07:18 Neut # 3.1 K/uL (1.8-7.0) 03/02/17 07:18 Lymph # 2.3 K/uL (1.0-4.3) 03/02/17 07:18 [place] # 0.6 K/uL (0.0-0.8) 03/02/17 07:18 Eos # 0.3 K/uL (0.0-0.7) 03/02/17 07:18 Baso # 0.0 K/uL (0.0-0.2) 03/02/17 07:18 PT 12.6 SECONDS (9.7-12.2) H 02/28/17 22:14 INR 1.1 02/28/17 22:14 APTT 29 SECONDS (21-34) 02/28/17 22:14 Sodium 133 mmol/L (132-148) 03/02/17 07:18 Potassium 3.8 mmol/L (3.6-5.2) 03/02/17 07:18 Chloride 105 mmol/L (98-107) 03/02/17 07:18 Carbon Dioxide 24 mmol/L (22-30) 03/02/17 07:18 Anion Gap 8 (10-20) L 03/02/17 07:18 BUN 10 mg/dL (7-17) 03/02/17 07:18 Creatinine 0.7 mg/dL (0.7-1.2) 03/02/17 07:18 Est GFR ( Amer) > 60 03/02/17 07:18 Est GFR (Non-Af Amer) > 60 03/02/17 07:18 POC Glucose (mg/dL) 169 mg/dL (65-110) H 03/02/17 06:26 Random Glucose 173 mg/dL (65-105) H 03/02/17 07:18 Hemoglobin A1c 9.8 % (4.2-6.5) H 02/28/17 22:11 Calcium 7.8 mg/dl (8.6-10.4) L 03/02/17 07:18 Phosphorus 3.6 mg/dL (2.5-4.5) 03/02/17 07:18 Magnesium 1.6 mg/dL (1.6-2.3) 03/02/17 07:18 Total Bilirubin 0.3 mg/dL (0.2-1.3) 03/02/17 07:18 AST 24 U/L (14-36) 03/02/17 07:18 ALT 35 U/L (9-52) 03/02/17 07:18 Alkaline Phosphatase 70 U/L (38-126) 03/02/17 07:18 Troponin I < 0.0120 ng/mL (0.00-0.120) 02/28/17 22:11 NT-Pro-B Natriuret Pep 83.7 pg/mL (0-900) 02/28/17 22:11 Total Protein 5.4 g/dL (6.3-8.3) L 03/02/17 07:18 Albumin 2.8 g/dL (3.5-5.0) L 03/02/17 07:18 Globulin 2.6 gm/dL (2.2-3.9) 03/02/17 07:18 Albumin/Globulin Ratio 1.1 (1.0-2.1) 03/02/17 07:18 Triglycerides 142 mg/dL (0-149) D 02/28/17 22:11 Cholesterol 154 mg/dL (0-199) 02/28/17 22:11 LDL Cholesterol Direct 113 mg/dL (0-129) 02/28/17 22:11 HDL Cholesterol 29 mg/dL (30-70) L 02/28/17 22:11 Vitamin B12 221 pg/mL (239-931) L 03/01/17 11:27 25-OH Vitamin D Total 27.8 NG/ML (30.0-100.0) L 03/01/17 11:27 Folate 11.3 ng/mL 03/01/17 11:27 Procalcitonin 0.19 NG/ML (0.19-0.49) 02/28/17 23:46 Free T4 0.95 ng/dL (0.78-2.19) 03/01/17 11:27 TSH 3rd Generation 2.32 mIU/L (0.46-4.68) 03/01/17 11:27 Urine Color Straw (YELLOW) 02/28/17 23:17 Urine Clarity Clear (Clear) 02/28/17 23:17 Urine pH 5.0 (5.0-8.0) 02/28/17 23:17 Ur Specific Ash 1.012 (1.003-1.030) 02/28/17 23:17 Urine Protein Negative mg/dL (NEGATIVE) 02/28/17 23:17 Urine Glucose (UA) 3+ mg/dL (Normal) H 02/28/17 23:17 Urine Ketones 1+ mg/dL (NEGATIVE) H 02/28/17 23:17 Urine Blood Negative (NEGATIVE) 02/28/17 23:17 Urine Nitrate Negative (NEGATIVE) 02/28/17 23:17 Urine Bilirubin Negative (NEGATIVE) 02/28/17 23:17 Urine Urobilinogen Normal mg/dL (0.2-1.0) 02/28/17 23:17 Ur Leukocyte Esterase Neg Susanne/uL (Negative) 02/28/17 23:17 Urine RBC (Auto) < 1 /hpf (0-3) 02/28/17 23:17 Urine Bacteria Rare (<OCC) 02/28/17 23:17 RPR Nonreactive (NONREACTIVE) 03/01/17 11:27 Influenza Typ A,B (EIA) Negative for flu a/b (NEGATIVE) 02/28/17 23:32 Discharge Exam - Head Exam Head Exam: ATRAUMATIC, NORMAL INSPECTION, NORMOCEPHALIC Discharge Plan - Follow Up Plan Condition: GOOD Disposition: HOME/ ROUTINE
[2017-03-02] MEDS: Pantoprazole 40 mg EC Tab PO SCH (10:25)
[2017-03-02] MEDS: Insulin Detemir 100 units/ml Vial (Levemir) SC SCH (10:26)
--- NOTE | 2017-03-02 11:27 | CP.PCM.DIS ---
Provider - Provider Date of Admission: 02/28/17 23:45 Attending physician: Neel Redding MD Primary care physician: PMD: None Consults: Neurology: Dr. Barber Time Spent in preparation of Discharge (in minutes): 45 Hospital Course - Lab Results Lab Results: Micro Results 02/28/17 23:30 Blood Blood Culture - Preliminary NO GROWTH AFTER 24 HOURS 02/28/17 00:15 Blood Blood Culture - Preliminary NO GROWTH AFTER 24 HOURS 02/28/17 23:13 Urine,Catheterized Urine Culture - Final No Growth (<1,000 CFU/ML) Most Recent Lab Values WBC 6.3 K/uL (4.8-10.8) 03/02/17 07:18 RBC 4.12 Mil/uL (3.80-5.20) 03/02/17 07:18 Hgb 11.0 g/dL (11.0-16.0) 03/02/17 07:18 Hct 33.3 % (34.0-47.0) L 03/02/17 07:18 MCV 80.7 fL (81.0-99.0) L 03/02/17 07:18 MCH 26.6 pg (27.0-31.0) L 03/02/17 07:18 MCHC 32.9 g/dL (33.0-37.0) L 03/02/17 07:18 RDW 14.5 % (11.5-14.5) 03/02/17 07:18 Plt Count 171 K/uL (130-400) 03/02/17 07:18 MPV 9.9 fL (7.2-11.7) 03/02/17 07:18 Neut % (Auto) 49.1 % (50.0-75.0) L 03/02/17 07:18 Lymph % (Auto) 36.3 % (20.0-40.0) 03/02/17 07:18 Mckenzie % (Auto) 10.2 % (0.0-10.0) H 03/02/17 07:18 Eos % (Auto) 4.0 % (0.0-4.0) 03/02/17 07:18 Baso % (Auto) 0.4 % (0.0-2.0) 03/02/17 07:18 Neut # 3.1 K/uL (1.8-7.0) 03/02/17 07:18 Lymph # 2.3 K/uL (1.0-4.3) 03/02/17 07:18 Mckenzie # 0.6 K/uL (0.0-0.8) 03/02/17 07:18 Eos # 0.3 K/uL (0.0-0.7) 03/02/17 07:18 Baso # 0.0 K/uL (0.0-0.2) 03/02/17 07:18 PT 12.6 SECONDS (9.7-12.2) H 02/28/17 22:14 INR 1.1 02/28/17 22:14 APTT 29 SECONDS (21-34) 02/28/17 22:14 Sodium 133 mmol/L (132-148) 03/02/17 07:18 Potassium 3.8 mmol/L (3.6-5.2) 03/02/17 07:18 Chloride 105 mmol/L (98-107) 03/02/17 07:18 Carbon Dioxide 24 mmol/L (22-30) 03/02/17 07:18 Anion Gap 8 (10-20) L 03/02/17 07:18 BUN 10 mg/dL (7-17) 03/02/17 07:18 Creatinine 0.7 mg/dL (0.7-1.2) 03/02/17 07:18 Est GFR ( Amer) > 60 03/02/17 07:18 Est GFR (Non-Af Amer) > 60 03/02/17 07:18 POC Glucose (mg/dL) 239 mg/dL (65-110) H 03/02/17 11:12 Random Glucose 173 mg/dL (65-105) H 03/02/17 07:18 Hemoglobin A1c 9.8 % (4.2-6.5) H 02/28/17 22:11 Calcium 7.8 mg/dl (8.6-10.4) L 03/02/17 07:18 Phosphorus 3.6 mg/dL (2.5-4.5) 03/02/17 07:18 Magnesium 1.6 mg/dL (1.6-2.3) 03/02/17 07:18 Total Bilirubin 0.3 mg/dL (0.2-1.3) 03/02/17 07:18 AST 24 U/L (14-36) 03/02/17 07:18 ALT 35 U/L (9-52) 03/02/17 07:18 Alkaline Phosphatase 70 U/L (38-126) 03/02/17 07:18 Troponin I < 0.0120 ng/mL (0.00-0.120) 02/28/17 22:11 NT-Pro-B Natriuret Pep 83.7 pg/mL (0-900) 02/28/17 22:11 Total Protein 5.4 g/dL (6.3-8.3) L 03/02/17 07:18 Albumin 2.8 g/dL (3.5-5.0) L 03/02/17 07:18 Globulin 2.6 gm/dL (2.2-3.9) 03/02/17 07:18 Albumin/Globulin Ratio 1.1 (1.0-2.1) 03/02/17 07:18 Triglycerides 142 mg/dL (0-149) D 02/28/17 22:11 Cholesterol 154 mg/dL (0-199) 02/28/17 22:11 LDL Cholesterol Direct 113 mg/dL (0-129) 02/28/17 22:11 HDL Cholesterol 29 mg/dL (30-70) L 02/28/17 22:11 Vitamin B12 221 pg/mL (239-931) L 03/01/17 11:27 25-OH Vitamin D Total 27.8 NG/ML (30.0-100.0) L 03/01/17 11:27 Folate 11.3 ng/mL 03/01/17 11:27 Procalcitonin 0.19 NG/ML (0.19-0.49) 02/28/17 23:46 Free T4 0.95 ng/dL (0.78-2.19) 03/01/17 11:27 TSH 3rd Generation 2.32 mIU/L (0.46-4.68) 03/01/17 11:27 Urine Color Straw (YELLOW) 02/28/17 23:17 Urine Clarity Clear (Clear) 02/28/17 23:17 Urine pH 5.0 (5.0-8.0) 02/28/17 23:17 Ur Specific [place] 1.012 (1.003-1.030) 02/28/17 23:17 Urine Protein Negative mg/dL (NEGATIVE) 02/28/17 23:17 Urine Glucose (UA) 3+ mg/dL (Normal) H 02/28/17 23:17 Urine Ketones 1+ mg/dL (NEGATIVE) H 02/28/17 23:17 Urine Blood Negative (NEGATIVE) 02/28/17 23:17 Urine Nitrate Negative (NEGATIVE) 02/28/17 23:17 Urine Bilirubin Negative (NEGATIVE) 02/28/17 23:17 Urine Urobilinogen Normal mg/dL (0.2-1.0) 02/28/17 23:17 Ur Leukocyte Esterase Neg Susanne/uL (Negative) 02/28/17 23:17 Urine RBC (Auto) < 1 /hpf (0-3) 02/28/17 23:17 Urine Bacteria Rare (<OCC) 02/28/17 23:17 RPR Nonreactive (NONREACTIVE) 03/01/17 11:27 Influenza Typ A,B (EIA) Negative for flu a/b (NEGATIVE) 02/28/17 23:32 - Hospital Course Hospital Course: PMD: Dr. Phillips Consults:Neurology: Dr. Barber PRINCIPAL DISCHARGE DIAGNOSES: Sycope Diarrhea Hypertension Low back pain Breast cancer s/p mastectomy CC:Syncope HISTORY OF PRESENT ILLNESS:76 Female with PMHx of HTN, DM, Breast Cancer- DCIS s/p left mastectomy presents to the ED after a syncopal episode. History retrieved from the patient, family friend, and daughter. Patient had a normal breakfast and lunch. After lunch the homemaker left around 1 pm. She reported have 2-4 bowel movements of diarrhea, nonbloody, non-bilious. The patient's daughter called her around 3pm and there was no response. When the daughter arrived home at 5:30 she found the patient on the floor, covered in her own urine. Patient reports she was walking and her next memory of the event was her being on the floor. She reports she felt dizzy at that movement and just passed out and landed on the floor. She is unaware of how long she was down. She could not recall if there any trauma to her head, or other body parts. Due to the length of time she was on the floor, she urinated on herself, due to the inability to hold her urine. Her daughter checked her sugar when she found her at 5:30 pm - it read 129. This is the first time this has happened to her. Denied fever, chills, headache, cough, chest pain, SOB, abdominal pain, n/v /d/c, or urinary symptoms. PMHx: HTN, DM, Breast Cancer- DCIS s/p left mastectomy PSHx: Vaginal sling for vaginal prolapse, hysterectomy, mastectomy Meds: As per MAR, reviewed and confirmed All: NKDA SHx: Admits to chewing tobacco, denied ETOH or illicit drug use FHx: Unremarkable PMD: Alan SUMMARY OF COURSE: Jesi Saunders is a 76 year old female who was admitted to [facility] 02/28/17-03/02/27 for low blood glucose ands syncope. While at the hospital she was given fluids and imaging testing was done as well that is listed below. Neurology was consulted while she was admitted as well. While she was admitted she was found to have low sodium. We reviewed the medication and found that she was on a thiazide and that was the likely source of the hyponatremia. I advised the patient to discontinue the use of that medication. Patient was seen and examined and determined stable for discharge. Advised the patient to attend the appointment with her Breast cancer physician that is set for 03/03/17 at [facility] [place]. Imaging: Carotid doppler: Negative Echo: 68% , normal left ventricle function, borderline dilated left atrium, diastolic dysfunction, mild tricuspid regurgitation, trace mitral regurgitation Head CT: atrophy and small vessel disease, no bleed, sinus disease CXR: no focal infiltrate or effusion DISCHARGE MEDICATIONS: Rx for Lisinopril placed in the chart Please provide patient with a copy of the following instructions in [place] upon discharge: 1). Follow up with your Primary Physician Dr. Phillips in the next 7 days. 2). Follow up as scheduled with your Breast Cancer Physician as planned on 03/03/17 at [facility]. 3). You stated that you had enough of your home medications. Please continue them as directed by Dr. Phillips: Januvia Metformin Glimepiride Lantus Pilocarpine Aspirin 4). Please STOP taking Lisinopril/Hydrochlorothiazide as this is causing your Sodium level to drop. Please take the following new medication and have the prescription filled at your pharmacy: Lisinopril 10 mg, 1 tablet by mouth 1x/day with breakfast, Disp #30, NO refills 5). Please take care and be well. Discharge Exam - Head Exam Head Exam: ATRAUMATIC, NORMAL INSPECTION, NORMOCEPHALIC Discharge Plan - Discharge Medications Prescriptions: Lisinopril [Zestril] 10 mg PO DAILY #30 tab - Follow Up Plan Condition: GOOD Disposition: HOME/ ROUTINE Instructions: Lisinopril (By mouth), Syncope (DC), Fall Prevention (DC) Additional Instructions: Las siguientes instrucciones fueron minuciosamente repasadas con el paciente y se le proporcionar taniya copia al ser exaltada por la enfermera: 1). seguimiento con holguin mdico de kate Phillips en los prximos 7 vallecillo. 2). seguimiento segn lo programado con [facility]in mdico del [facility] segn lo planeado el jueves 03/03/17 en el [facility]. 3). usted declar que ya [place] suficientes medicamentos para holguin casa. Por favor , contine flori lo indique el Dr. Phillips: Januvia Metformina Glimepirida Lantus Pilocarpina Aspirina 4). por favor deje de wilmer lisinopril/hydrochlorothiazide ya que esto est causando que holguin nivel de sodio caiga. Por favor tome la siguiente nueva medicaci n y tenga la receta rellenada en holguin farmacia: Lisinopril 10 mg, 1 tableta por boca 1x/da con desayuno, DISP #30, sin recargas 5). por favor, cudese y est sherry. The following instructions were thoroughly gone over with the patient and a copy will be provided to her upon discharge by Nurse: 1). Follow up with your Primary Physician Dr. Phillips in the next 7 days. 2). Follow up as scheduled with your Breast Cancer Physician as planned on 03/03/17 at [facility]. 3). You stated that you had enough of your home medications. Please continue them as directed by Dr. Phillips: Januvia Metformin Glimepiride Lantus Pilocarpine Aspirin 4). Please STOP taking Lisinopril/Hydrochlorothiazide as this is causing your Sodium level to drop. Please take the following new medication and have the prescription filled at your pharmacy: Lisinopril 10 mg, 1 tablet by mouth 1x/day with breakfast, Disp #30, NO refills 5). Please take care and be well.
[2017-03-02 11:42] VITALS: PULSE 79; O2SAT 97
[2017-03-02] MEDS ORDERED: Pneumococcal 23-Valent Vaccine IM ONE (14:00)
[2017-03-02] MEDS ORDERED: Influenza Vaccine 60 mcg/0.5 mL SYR (4YR UP) IM ONE (14:00)
== END 2017-03-02 14:08 | disposition home or self-care (01) ==
LOC: C.ER 21:09 → C.9E 23:45 → C.6T 03-01 02:44
PROVIDERS: ADMIT Internal Medicine; ATTEND Internal Medicine
DX: R55 Syncope and collapse (principal); E87.1 Hypo-osmolality and hyponatremia; E87.6 Hypokalemia; I10 Essential (primary) hypertension; E11.9 Type 2 diabetes mellitus without complications; E78.00 Pure hypercholesterolemia, unspecified; I08.1 Rheumatic disorders of both mitral and tricuspid valves; F17.220 Nicotine dependence, chewing tobacco, uncomplicated; H40.9 Unspecified glaucoma; R19.7 Diarrhea, unspecified; Z85.3 Personal history of malignant neoplasm of breast; Z79.4 Long term (current) use of insulin; Z90.12 Acquired absence of left breast and nipple
CPT/HCPCS: 36415; 70450; 71045; 80053; 80061; 81001; 82306; 82607; 82746; 82948; 83036; 83735; 83880; 84100; 84145; 84439; 84443; 84484; 85025; 85610; 85730; 86592; 87040; 87086; 87804; 93005; 93306; 93880; 96365; 97116; 97162; 99285; G0378; G8978; G8979; J0696; J1644; J3475; J7040

== ENCOUNTER 2018-02-17 11:49 | Outpatient (CLI) | payer MEDICAID | END 2018-02-17 11:50 | disposition home or self-care (01) | LOC: C.DEXAIC 11:49 | DX: M81.0 Age-related osteoporosis without current pathological fracture (principal); Z12.31 Encounter for screening mammogram for malignant neoplasm of breast ==